=== PATIENT | male | born 1970 | race Caucasian/White ===

== ENCOUNTER → 2024-03-17 07:41 | Outpatient (REF) | payer BC, SELFPAY | LOC: RCS 07:41 | PROVIDERS: ATTENDING PHYSICIAN Registered Nurse | DX: E78.5 Hyperlipidemia, unspecified (principal); Z82.49 Family history of ischemic heart disease and other diseases of the circulatory system | CPT/HCPCS: 93017 ==

== ENCOUNTER 2024-04-07 12:55 | Inpatient (IN) | payer BC, OTHER, SELFPAY ==
[2024-04-07] VITALS (15 sets, daily range): BP systolic 102–153; BP diastolic 68–119; BMI 30.9; BMI 30.6
--- NOTE | 2024-04-07 10:59 | ED.GENMED ---
History of Present Illness
General
Chief Complaint: Cardiac Symptoms
Time Seen by Provider: 04/07/24 10:59
History of Present Illness
History of Present Illness:
HPI: Woke last evening at 10 PM w/ palpitations along with some degree of vague shortness of breath chest discomfort. He also had some mild dizziness. Had trouble going back to sleep. No fevers, no recent illness. No changes in thyroid med.
Recent exercise stress test which was abnormal but is scheduled to see Dr. Sharma next month.
EXAM:
GENERAL: Well appearing in no distress
HEENT: Moist oral mucosa
CARDIOVASCULAR: No murmurs, tachycardic heart rate, irregular rhythm, No chest wall tenderness
PULMONARY: No respiratory distress, breath sounds are clear and equal
ABDOMEN: Soft with no peritoneal signs, no tenderness
NEUROLOGIC: Excellent strength all extremities, no coordination deficits
PSYCHIATRIC: Appropriate mental status, normal insight and judgement
EXTREMITIES: Nontender, no edema, moves all extremities equally
SKIN: No rash, no lesions
TIME OF INITIAL ENCOUNTER: 11:30 AM
NUMBER AND COMPLEXITY OF PROBLEMS ADDRESSED AT THE ENCOUNTER
� Chronic conditions affecting care: Asthma, hypothyroidism, hyperlipidemia
� Acute Exacerbation and/or Progression of Chronic Illness: This is an acute problem
� Differential Diagnosis includes: New onset A-fib, thyroid disease, ACS
AMOUNT AND/OR COMPLEXITY OF DATA TO BE REVIEWED AND ANALYZED
� I performed an independent evaluation of and my interpretation is:
EKG: A-fib 119, left axis deviation, nonspecific ST abnormality with no old to compare
CT:
X-rays:
Laboratory Studies: Troponin 0.012, CBC unremarkable, TSH normal, chemistries for the most part are unremarkable with exception of total bili and I have asked the nurse to redraw the potassium
Other:
� Review of other/old records: I reviewed records�the patient had a exercise stress test read by Dr. Dietz 3 weeks ago that was positive for ischemia with [address] depression in the inferolateral leads at 95%
� Clinical information was obtained by an independent historian: I spoke to at bedside
� Prescriptions/Medications Considered but not given:
� Further testing considered but not performed:
RISK OF COMPLICATIONS AND/OR MORBIDITY OR MORTALITY OF PATIENT MANAGEMENT
� Social determinants of health affecting care: Does not usually drink alcohol regularly but did have alcohol on the preceding 2 days prior to symptom onset
� Discussion with other providers: Discussed case with Dr. Cristobal; Dr. Carey for admission
� Escalation of care including admission/observation vs risk of discharge considered: In discussion with Dr. Cristobal, it was ultimately felt to be safest to keep him here on Cardizem drip and consider CARLYLE cardioversion tomorrow.
He was placed on a Cardizem drip as his rates frequently in the 110s to 130s range.
Phy Exam
Physical Exam
Physical Exam:
See HPI
Course
Orders/Labs/Results
Orders:
Orders
04/07/24 09:53
Electrocardiogram (*1) Urgent
Reason for Study: Chest Pain
EKG- Treatment ONCE
04/07/24 Lunch
Gluten Free
At Your Request: Full Participation
04/07/24 11:17
Complete Blood Count/With Diff Urgent
Comprehensive Metabolic Panel Urgent
Direct Bilirubin Urgent
Comment: ADD ON
Magnesium Urgent
TSH Reflex To Free T4 Urgent
Troponin I Urgent
04/07/24 12:04
Diltiazem HCl [Cardizem] 10 mg IV NOW STA
04/07/24 12:15
Diltiazem 125 mg/125 ml Nss [Cardizem] 125 mg in 125 ml IV PER PROTOCOL
Initial dose in mg/hr, then titrate:: 5
Titrate to keep:: Heart rate 80-100 bpm
Titrate by mg/hr:: 5 mg/hr
Frequency of titrations (minutes):: 15
Maximum dose in mg/hr:: 15
04/07/24 12:39
Add On- LAB Urgent
Tests Added?: direct bili
04/07/24 12:40
Heparin 4,000 units IV NOW STA
Notify MD As Directed
Notify physician if: Call provider for further orders if PTT is greater than or equal to 200 per heparin
infusion protocol.
Nursing to Place Non Medication Order As Directed
Physician Order: PTT 6 hours after initial start of Heparin infusion
Above order entered?: Yes
04/07/24 12:41
CARDIOLOGY CONSULT Routine
Consulting Provider: Gutierrez Carvajal
Was physician already notified: Yes
Reason for consult: new onset afib
04/07/24 12:43
Admit/Transfer Patient As Directed
Co-Sign Provider:
Level of Care: Inpatient admission
Assign to:: IVU
Physician / Group: kang rincon
Diagnosis: new onset afib
Reason for Hospitalization: new onset afib
Expected length of stay greater than two midnights?: Yes
ELOS- Estimated Length of Stay in days: 3
I certify the patient meets the requirements for IP care: Yes
Code Status As Directed
Resuscitation Status: Full Code
04/07/24 12:45
Heparin 98148 Units/250 ml 25,000 units in 250 ml IV PER PROTOCOL
Weight to be used for heparin protocol in kilograms (kg):: 103.2
Protocol:: Cardiac Tx/Acute Coronary
PTT Goal Range to be used:: PTT 73 to 111 seconds
Order type:: Initial
INITIAL Infusion Dose (UNITS/KG/hr) & then follow protocol:: 12 units/kg/hr
Infusion Dose in UNITS/hr & then follow protocol (UNITS/hr):: 1,000
INFUSION RATE in mL/hr & then follow protocol (mL/hr):: 10
PTT less than or equal to 64 seconds:: Increase rate by 200 units/hr (+ 2 mL/hr)
PTT 64.1 to 72.9 seconds:: Increase rate by 100 units/hr (+ 1 mL/hr)
PTT 73 to 111 seconds:: Target Range. No change in rate.
PTT 111.1 to 130.9 seconds:: Decrease rate by 100 units/hr (- 1 mL/hr)
PTT 131 to 199.9 seconds:: HOLD for 1 hr. Then decrease rate by 200 units/hr (- 2 mL/hr)
PTT greater than or equal to 200 seconds:: HOLD for 2 hrs & Notify Provider. Then decrease by 200 units/hr (-
2 mL/hr)
Lab follow-up:: Each change, PTT q6h until 2 consecutive are therapeutic. Then PTT
daily.
04/07/24 12:46
PRN Pain Medication Management As Directed
May give lesser potent ordered pain med per pt: Yes
preference::
Protocol:: Medication orders for pain may be administered in a
manner that supports deferring to patient preference
when the pt is:
- Requesting an ordered lesser potent pain medication.
Least to most potent pain medications are defined
as: acetaminophen < NSAID < tramadol < opioids
(morphine, oxycodone, hydromorphone).
- Requesting a lesser dose of the same medication IF
ORDERED.
- Requesting a less intrusive route of administration
if both routes are prescribed by the provider (PO <
IV).
04/07/24 13:01
PTT Urgent
Comment: Obtain baseline before beginning heparin infusion if not already collected
Abnormal Lab Results
04/07/24
11:17
MCH 32.2 H pg
(27.0-31.0)
MPV 10.8 H fL
(7.4-10.4)
Calcium 10.3 H mg/dl
(8.4-10.2)
Total Bilirubin 3.5 H mg/dl
(0.2-1.3)
Alkaline Phosphatase 36 L U/L
(38-126)
04/07/24 11:17
04/07/24 11:17
Vital Signs
Initial and Last Documented VS:
Initial Vital Signs
Temp Pulse BP Pulse Ox
98.3 F 54 127/84 99
04/07/24 10:01 04/07/24 10:01 04/07/24 10:01 04/07/24 10:01
Last Documented Vital Signs
Temp Pulse Resp BP Pulse Ox
98.3 F 82 13 123/87 94
04/07/24 10:01 04/07/24 12:30 04/07/24 12:30 04/07/24 12:00 04/07/24 12:30
*Critical Care Note
Total Time (30-74mins, 75-104mins- exclusive of procedures): Not Applicable
ED Attending Note
-
Portions of this chart may have been created with voice recognition software.� Occasional wrong word or��sound alike� substitutions may have occurred due to the inherent limitations of voice recognition software.
Discharge Plan
Departure
Patient Disposition: Admit
Date of Disposition: 04/07/24
Time of Disposition: 12:06
Presentation/result/management discussed w/ accepting MD/DO: Hospitalist
Discharge Problem:
Atrial fibrillation with RVR
Interventions
Interventions:
*Risk Screen - Suicide Last Done: 04/07/24 11:17
*General Assessment Last Done: 04/07/24 11:17
*Neglect/Abuse Screening Last Done: 04/07/24 11:17
ED- Fall Risk Assessment Last Done: 04/07/24 11:17
*ED COVID-19 Vaccine History Last Done: 04/07/24 11:17
ED- Pulmonary Assessment Last Done: 04/07/24 11:17
ED- Cardiac Assessment Last Done: 04/07/24 11:17
[2024-04-07 11:47] LABS: % Basophils 0.4 % (0-2); % Eosinophils 0.3 % (0-6); % Immature Granulocytes 0.1 % (0-0.5); % Lymphocytes 22.1 % (20.5-51.1); % Monocytes 8.6 % (1.7-9.3); % Neutrophils 68.5 % (42.2-75.2); Absolute Lymphocytes 1.7 10^3/uL (1.2-3.4); Absolute Monocytes 0.6 10^3/uL (0.1-0.6); Absolute Neutrophils 5.1 10^3/uL (1.4-6.5); Hematocrit 46.7 % (39.0-52.0); Hemoglobin 16.4 g/dL (13.0-18.0); Mean Corp Hgb Conc. 35.1 g/dL (33.0-37.0); Mean Corpuscular Hgb 32.2 pg (27.0-31.0); Mean Corpuscular Volume 91.6 fL (80.0-94.0); Mean Platelet Volume 10.8 fL (7.4-10.4); Nucleated Red Blood Cells % 0 % (-); Platelet Count 390 10^3/uL (130-400); Red Cell Dist. Width 14.1 % (11.5-14.5); White Blood Cell Count 7.5 10^3/uL (4.8-10.8)
[2024-04-07 12:04] LABS: Troponin I 0.012 ng/ml
--- NOTE | 2024-04-07 12:13 | HPS.HSE ---
Family Physician
-
Family Physician: JOYCE Yun
Chief Complaint
-
Palpitations, shortness of breath, chest discomfort, dizziness
History of Present Illness
53-year-old male complaining of palpitations with shortness of breath and slight chest discomfort starting last night 04/06/2024 at 10 PM. He does report some mild dizziness with those symptoms. He had outpatient stress test on 03/17/[address] depression inferior lateral leads at 95% positive for ischemia and had plans to follow-up with Dr. Eaton next month. He comes to the ER today Heart rate 119 bpm. He denies any recent illness, sick contacts headache, fever, chills, chest
pain, shortness breath, cough, abdominal pain, nausea, vomiting, diarrhea, urinary symptoms. He reports he drinks once a month he did have a couple beers on Sunday.
He has past medical history hypothyroidism, HLD, seasonal allergies asthma, ulcerative colitis, celiac disease.
Medical History
Past Medical History
Past Medical History: Reports Other
Additional Past Medical History:
hypothyroidism
HLD
seasonal allergies
asthma
ulcerative colitis
celiac disease
Past Surgical History: Reports Other
Additional Past Surgical History:
Right knee meniscus repair
Social History
Tobacco: Non-smoker
Alcohol: Occasional (Once a month)
Drug: None
Personal:
Living: With Family (With )
Employment: Employed ([employer])
Family History
Family History: Other (Mom CAD stent 72 Father CAD, CABG x 4 vessel disease at age 60)
Allergies / Home Medications
Allergies reflects when Allergies were last updated in [employer].
Home Medications with original date entered in [employer]
Allergy/Medication List:
Allergies
Allergy/AdvReac Type Severity Reaction Status Date / Time
No Known Allergies Allergy Unverified 04/07/24 10:03
Home Medications
aspirin 81 mg tablet,delayed release 81 mg PO DAILY 04/07/24
atorvastatin 40 mg tablet 40 mg PO DAILY 04/07/24
cetirizine 10 mg tablet (Zyrtec) 10 mg PO DAILY 04/07/24
cholecalciferol (vitamin D3) 50 mcg (2,000 unit) tablet 50 mcg PO DAILY 04/07/24
levothyroxine 125 mcg tablet (Synthroid) 125 mcg PO DAILY 04/07/24
montelukast 10 mg tablet 10 mg PO DAILY 04/07/24
omega 0-xaf-zjy-fish oil 1,000 mg (120 mg-180 mg) capsule (Fish Oil) 1 cap PO DAILY 04/07/24
therapeutic multivitamin 1 tab PO DAILY 04/07/24
upadacitinib 30 mg tablet,extended release 24 hr (Rinvoq) 30 mg PO DAILY 04/07/24
Review of Systems
-
History Source: Patient and Family ( at bedside)
A 12 point ROS was completed and negative except as noted: Yes
Constitutional: Denies Fever, Fatigue or Chills
EENT: Denies Sore Throat or Runny Nose
Respiratory: Reports Trouble Breathing; Denies Cough
Cardiac: Reports Chest Pain and Palpitations; Denies Syncope
Abdomen/GI: Denies Abdominal Pain, Nausea, Vomiting, Diarrhea, Constipated, Bloody Stools or Black Stools
: Denies Dysuria, Frequency, Flank Pain, Incontinence, Difficulty Voiding or Urgency
Musculoskeletal: Denies Joint Pain, Joint Swelling or Edema
Skin: Denies Itching or Rash
Neurological: Reports Dizzy; Denies Headache or Weakness
Endocrine: Reports No Symptoms
Hematologic/Lymphatic: Reports No Symptoms
Psych: Reports Calm
Physical Exam
Vital Signs
Vital Signs
Temp Pulse Resp BP Pulse Ox
98.3 F 116 15 108/86 95
04/07/24 10:01 04/07/24 11:45 04/07/24 11:45 04/07/24 11:00 04/07/24 11:45
Physical Exam
General: Comfortable and Conversant; No Pain, Fever or Chills
HEENT: NormoCephalic, Anicteric, Moist mucous membranes, PERRLA, [place] Conjunctivae, No Ptosis and Neck Nontender
Respiratory: Clear; No Wheezes, Rales or Rhonchi
Cardiac: S1/S2 and Irregular Rhythm (A-fib HR 119 bpm); No Murmur, Rub, Gallop or Peripheral Edema
Breast: Deferred by me
GI: Non Tender, Non Distended, Normal Bowel Sounds and No Hepatosplenomegaly
Rectal: Brown and Deferred by Provider
Genito-urinary: Deferred by me
Musculoskeletal: No Clubbing, No Cyanosis and No Edema
Skin: Warm and Dry; No Rash
Neuro: AO x 3, No Motor Deficits, Nonfocal/grossly intact, Cranial Nerves Intact and No Sensory Deficits; No Slurred Speech, Facial Droop or Tremors
Psych: Calm
Laboratory Results
-
04/07/24 11:17
Laboratory Results
Troponin I 0.012 ng/ml 04/07/24 11:17
Data Reviewed
-
Lab Data: Labs Reviewed by me
Impression/Plan
-
Impression/plan:
Admit to IVU
#New onset A-fib with RVR
-IV Cardizem drip
-IV heparin drip
-Plan for CARLYLE/cardioversion in a.m. 04/08/2024
N.p.o. after midnight
-May have gluten-free diet today
-Consult [facility]ology
-Check TSH with free T4 reflex
03/17/2024: Outpatient stress test showed positive for ischemia with [address] depression inferior lateral at 95%
#Hypothyroidism
Check TSH with free T4 reflex
-Continue Synthroid 125 mcg p.o. daily
#Elevated total bilirubin unclear
T. bili 3.5
Will check direct bili
#HLD
Continue atorvastatin 40 mg daily
-May continue prophylactic aspirin 81 mg daily
#Asthma�no acute exacerbation
#Ulcerative colitis Hx
-Continue Rinvoq 30 mg daily
#Celiac disease
-Gluten-free diet
#Seasonal allergies
Continue Zyrtec 10 mg daily, montelukast 10 mg daily
DVT prophylaxis
Iv heparin gtt
Full code
[2024-04-07] MEDS: CARDIZEM 10 MG IV (12:19)
[2024-04-07] MEDS: CARDIZEM 125 IV (12:19)
[2024-04-07 12:24] LABS: TSH Reflex To Free T4 0.68 uIU/ml (0.47-4.68)
[2024-04-07 12:30] LABS: ALT (SGPT) 44 U/L (0-50); AST (SGOT) 57 U/L (17-59); Albumin 4.7 g/dl (3.5-5.0); Alkaline Phosphatase 36 U/L (38-126); Blood Urea Nitrogen 11 mg/dl (9-20); Calcium 10.3 mg/dl (8.4-10.2); Carbon Dioxide 26 mmol/L (22-30); Chloride 106 mmol/L (98-107); Estimated Creatinine Clearance 121 ml/min; Glucose 98 mg/dl (70-99); Sodium 141 mmol/L (135-145); Total Bilirubin 3.5 mg/dl (0.2-1.3); Total Protein 7.2 g/dl (6.3-8.2); eGFR > 60.00
[2024-04-07] MEDS: HEPARIN 4000 UNITS IV (13:25)
--- NOTE | 2024-04-07 13:29 | CON.CAR ---
Consultation
Consultation Request
Date/Time Consultation Requested: 04/07/24
Date/Time Consultation Performed: 04/07/24
Requesting Provider: Jourdan Pritchard
Performing Provider: Wei
Reason for Consultation: AFRVR
Medical History
-
Chief Complaint: palpitations
History of Present Illness:
53-year-old man past medical history of ulcerative colitis presenting with palpitations found to be in atrial fibrillation with rapid ventricular response, cardiology is consulted for evaluation and management of A-fib
Patient tells me developed palpitations last evening that brought him to [place] emergency department. Here he was found to be in atrial fibrillation with heart rates up into the 130s. He was started on diltiazem drip with improvement in heart
rate control. patient tells me that atrial fibrillation is a new diagnosis for him however he has had intermittent palpitations over the last several months.
Not experiencing chest pain or pressure. No shortness of breath at rest or dyspnea exertion. No lower extremity edema.
Transthoracic echocardiogram from 2019 with normal biventricular size and function and no significant valvular pathology.
In regards to cardiac history, he has a strong family history of coronary artery disease and therefore underwent ETT this past month ordered by his PCP which showed abnormal ECG response. No chest discomfort on the treadmill or otherwise. He is
planned to follow-up with Dr. Sharma in the next month regarding this.
PMHx:
Abnormal stress test
HLD
FHx premature CAD
Hypothyroidism
Seasonal allergies
Asthma
Ulcerative colitis
Celiac disease
Past Medical History
Past Medical History: Other (as above)
Past Surgical History: Other (as above)
Social History
Tobacco: Non-Smoker
Alcohol: Occasional
Personal:
Employment: Employed
Family History
Family History: CAD (both parents)
Allergies / Home Medications
Allergy/AdvReac Type Severity Reaction Status Date / Time
No Known Allergies Allergy Unverified 04/07/24 10:03
�Medication �Instructions �Recorded �Confirmed �Type
aspirin 81 mg tablet,delayed 81 mg PO DAILY 04/07/24 04/07/24 History
release
atorvastatin 40 mg tablet 40 mg PO DAILY 04/07/24 04/07/24 History
cetirizine 10 mg tablet (Zyrtec) 10 mg PO DAILY 04/07/24 04/07/24 History
cholecalciferol (vitamin D3) 50 50 mcg PO DAILY 04/07/24 04/07/24 History
mcg (2,000 unit) tablet
levothyroxine 125 mcg tablet 125 mcg PO DAILY 04/07/24 04/07/24 History
(Synthroid)
montelukast 10 mg tablet 10 mg PO DAILY 04/07/24 04/07/24 History
omega 8-yjy-shr-fish oil 1,000 mg 1 cap PO DAILY 04/07/24 04/07/24 History
(120 mg-180 mg) capsule (Fish Oil)
therapeutic multivitamin 1 tab PO DAILY 04/07/24 04/07/24 History
upadacitinib 30 mg tablet,extended 30 mg PO DAILY 04/07/24 04/07/24 History
release 24 hr (Rinvoq)
Review of Systems
-
History Source: Patient
All other systems: Negative unless noted
Physical Exam
Vital Signs
Temp Pulse Resp BP Pulse Ox
98.3 F 82 13 123/87 94
04/07/24 10:01 04/07/24 12:30 04/07/24 12:30 04/07/24 12:00 04/07/24 12:30
Lab Results
04/07/24 11:17
04/07/24 11:17
Troponin I 0.012 ng/ml 04/07/24 11:17
Physical Exam
General: Well Developed
HEENT: Normocephalic
Respiratory: Clear and Non Labored Respirations
Cardiac: S1/S2 and Irregular Rhythm
GI: Soft
Musculoskeletal: No Edema
Skin: Warm and Dry
Neuro: AO x 3
Psych: Calm
Impression / Plan
-
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
Assessment:
AFib RVR
Abnormal stress test
HLD
FHx premature CAD
Hypothyroidism
Seasonal allergies
Asthma
Ulcerative colitis
Celiac disease
TTE 12/2019: Normal biventricular size and function, no significant valvular pathology
ETT 03/2024: [address] depressions at 11 METS, DTS +5, low to moderate risk study
Plan:
-Presenting with palpitations found to be in atrial fibrillation with rapid ventricular response
-Diltiazem drip for rate control, goal heart rate less than 110 bpm
-If he remains in atrial fibrillation tomorrow we will plan for CARLYLE/direct-current cardioversion
-Consider discharging on p.o. diltiazem for rate control
-Heparin drip for cardioembolic prophylaxis with plan to transition to Eliquis on discharge, explained that he should continue Eliquis for 1 month following the cardioversion. Can discuss long-term anticoagulation as an outpatient however with low
CHADS2 Vasc may be able to come off of OAC.
-Patient would be interested in discussing ablation with electrophysiology
-Discussed his mildly abnormal exercise stress test, he is not experiencing any chest discomfort and troponin was undetectable
-Consideration of further ischemic evaluation as an outpatient - we can tentatively schedule stress echo prior to office follow up if he is interested
Data Reviewed
-
EKG: Tracing Personally Visualized and interpreted
Medical Tests (Nuc Med, Echo etc): Image Personally Visualized and interpreted
Labs: Labs Reviewed by me
Old Records: Reviewed
[2024-04-07] MEDS: HEPARIN 25000 UNITS/250 ML IV (13:31)
[2024-04-07 13:49] LABS: Direct Bilirubin 0.2 mg/dl (0.0-0.4)
--- NOTE | 2024-04-07 14:03 | W.PN.UPDATE ---
Update Note
Progress Note Update
Patient seen and examined and discussed with COOPER Cannon, and I agree with her note.
Gen-AAOx3, NAD
HEENT-NC, AT, anicteric, clear oral mm
Neck-supple
CV-reg, no M, +S1/S2
Lungs-clear B/L
Abd-soft, NT, ND
Ext-no edema
Musculoskeletal-no cyanosis, clubbing
Skin-warm and dry
Neuro-grossly non-focal
Psych-calm, cooperative
New onset atrial fibrillation -rapid ventricular response. Admit to IVU, IV Cardizem, IV heparin. N.p.o. after midnight for possible CARLYLE/cardioversion morning. Cardiology consulted.
Abnormal stress test -mild ischemia noted. Cardiology recommends outpatient ischemic evaluation.
Hypothyroidism -continue Synthroid. TSH 0.68.
Hyperlipidemia -atorvastatin.
Elevated indirect bilirubin -suspect Gilbert's syndrome.
Ulcerative colitis -controlled on Rinvoq.
Mild intermittent asthma - stable.
Celiac disease
Seasonal allergies
Obesity due to excess calories
Full code
--- NOTE | 2024-04-07 17:13 | PTCARENOTE ---
Pt admitted from ED with newly documented atrial fib. Pt denies any discomfort. Cardizem and heparin infusions in progress. Telemetry shows atrial fib at a rate @68 at rest up to 130's with activity. Pt given information about atrial fib and videos
to watch on TV. Plan for CARLYLE/CV on 04/08 if needed.
[2024-04-07 20:36] LABS: APTT 45.9 Sec (23.4-35.0)
[2024-04-07] MEDS: CARDIZEM CD 180 MG PO (21:19)
[2024-04-07] MEDS: ELIQUIS 5 MG PO (21:20)
--- NOTE | 2024-04-07 23:00 | PTCARENOTE ---
Assumed care of pt. at change of shift. VSS, Afib on tele. HR sustaining in 60s and as low as 45. Denies CP, SOB, or dizziness. Cardiology provider Dr Carvajal notified. IV Cardizem gtt discontinued and switched to PO Cardizem. Heparin drip
discontinued and PO eliquis started. Pt. NPO at midnight for CARLYLE/cardioversion tomorrow. Plan of care discussed and pt. verbalizes understanding. Ambulating independently in room without difficulty. Can make needs known. Call espinoza within reach.
[2024-04-08 03:21] VITALS: BP 120/78
[2024-04-08 04:19] LABS: % Basophils 0.5 % (0-2); % Eosinophils 0.8 % (0-6); % Immature Granulocytes 0.2 % (0-0.5); % Lymphocytes 45.2 % (20.5-51.1); % Neutrophils 43.3 % (42.2-75.2); Absolute Eosinophils 0.1 10^3/uL (0-0.7); Absolute Lymphocytes 2.9 10^3/uL (1.2-3.4); Absolute Monocytes 0.6 10^3/uL (0.1-0.6); Absolute Neutrophils 2.8 10^3/uL (1.4-6.5); Hemoglobin 15.8 g/dL (13.0-18.0); Mean Corp Hgb Conc. 35.1 g/dL (33.0-37.0); Mean Corpuscular Hgb 31.9 pg (27.0-31.0); Mean Corpuscular Volume 90.7 fL (80.0-94.0); Mean Platelet Volume 11.2 fL (7.4-10.4); Nucleated Red Blood Cells % 0 % (-); Platelet Count 370 10^3/uL (130-400); Red Blood Cell Count 4.96 10^6/uL (4.70-6.10); Red Cell Dist. Width 14.1 % (11.5-14.5); White Blood Cell Count 6.4 10^3/uL (4.8-10.8)
--- NOTE | 2024-04-08 04:19 | PTCARENOTE ---
Pt. with frequent >2 second pauses on telemetry with longest being 2.69 seconds. HR 40s-70s at rest, in Afib. Pt. denies dizziness or SOB. BP 120/78.
[2024-04-08 04:42] LABS: ALT (SGPT) 38 U/L (0-50); AST (SGOT) 42 U/L (17-59); Alkaline Phosphatase 39 U/L (38-126); Blood Urea Nitrogen 13 mg/dl (9-20); Calcium 9.6 mg/dl (8.4-10.2); Carbon Dioxide 24 mmol/L (22-30); Chloride 107 mmol/L (98-107); Estimated Creatinine Clearance > 125 ml/min; Glucose 103 mg/dl (70-99); HDL Cholesterol 65 mg/dl; LDL Cholesterol, Calculated 81 mg/dl; Potassium 4.2 mmol/L (3.5-5.1); Sodium 139 mmol/L (135-145); Total Bilirubin 2.5 mg/dl (0.2-1.3); Total Cholesterol 162 mg/dl (50-199); Total Protein 6.4 g/dl (6.3-8.2); Triglyceride 81 mg/dl (10-149); Very Low Density Lipoprotein 16 mg/dl (0-30); eGFR > 60.00
[2024-04-08] MEDS: SYNTHROID 125 MCG PO (06:42)
[2024-04-08 07:00] VITALS: BP 128/79
[2024-04-08] MEDS: CARDIZEM CD 180 MG PO (08:01)
[2024-04-08] MEDS: ELIQUIS 5 MG PO (08:02)
[2024-04-08 10:06] VITALS: BP 122/83
--- NOTE | 2024-04-08 10:40 | PTCARENOTE ---
Received pt post CARLYLE/CV. VSS. in pt's room reviewing results. Will monitor.
[2024-04-08] MEDS: ZYRTEC 10 MG PO (10:56)
[2024-04-08] MEDS: LIPITOR 40 MG PO (10:56)
[2024-04-08] MEDS: THERAGRAN 1 TABLET PO (10:56)
[2024-04-08] MEDS: VITAMIN D3 (cholecalciferol) 50 MCG PO (10:56)
[2024-04-08] MEDS: NON-FORMULARY ITEM 30 MG PO (10:56)
[2024-04-08] MEDS: SINGULAIR 10 MG PO (10:56)
--- NOTE | 2024-04-08 12:04 | W.PN.CARDCBS ---
Addendum entered and electronically signed by Severo Pittman MD 04/08/24 17:31:
I saw and examined the patient.
The Rail Manager's note was reviewed and I agree with the note.
Comment:
GEN: No distress, awake, Ox3
HEENT: supple, anicteric, mmm
LUNGS: CTA, no wheezes/rales
CV: Reg, S1/S2, /6 syst LSB, no gallop
ABD: soft, BS+, NT/ND
EXT: No edema
NEURO: Gross non-focal
SKIN: No rash
plan:
Back in rhythm status post CARLYLE cardioversion. Continue Eliquis and p.o. Cardizem. Stop aspirin.
Will proceed with stress echo as outpatient
Follow-up with electrophysiology in several weeks. Okay for discharge.
Original Note:
Today's Communication / Plan
-
Status post successful CARLYLE/cardioversion
Stop aspirin. Continue Harmony Camposzem
Planned for stress echo 04/11/2024
Outpatient EP follow-up 04/29/2024
Okay for discharge
Impression / Plan
-
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
Assessment:
AFib RVR s/p CARLYLE/CV 04/08/24
Abnormal stress test
HLD
FHx premature CAD
Hypothyroidism
Seasonal allergies
Asthma
Ulcerative colitis
Celiac disease
TTE 12/2019: Normal biventricular size and function, no significant valvular pathology
ETT 03/2024: [address] depressions at 11 METS, DTS +5, low to moderate risk study
Plan:
-He presented with palpitations and was found to be in new A-fib with RVR
-TSH within normal limits
-Status post successful CARLYLE/cardioversion 04/08
-Stop aspirin. Continue Eliquis started this admission
-Continue p.o. Cardizem 180 mg daily
-He was noted to have mildly abnormal treadmill stress test. Without chest discomfort and troponin undetectable, however with significant family history. He is scheduled through [facility] for stress echo, scheduled for 04/11/2024
-Outpatient cardiac follow-up with EP arranged
-Okay for discharge to home today
-Discussed activity restrictions/limitations
-Discussed with patient and at bedside. Discussed with nursing. Discussed with hospitalist.
Progress Note - French Comber
Subjective
Date of Service: April 08, 2024
No complaints. Status post successful CARLYLE/cardioversion
Objective
Labs:
04/08/24 03:30
04/08/24 03:30
Labs
Hgb 15.8 g/dL (13.0-18.0) 04/08/24 03:30
Hct 45.0 % (39.0-52.0) 04/08/24 03:30
Plt Count 370 10^3/uL (130-400) 04/08/24 03:30
APTT Cancelled 04/08/24 02:50
Sodium 139 mmol/L (135-145) 04/08/24 03:30
Potassium 4.2 mmol/L (3.5-5.1) 04/08/24 03:30
BUN 13 mg/dl (9-20) 04/08/24 03:30
Creatinine 0.8 mg/dL (0.7-1.3) 04/08/24 03:30
Glucose 103 mg/dl (70-99) H 04/08/24 03:30
Troponins
04/07/24
11:17
Troponin I 0.012
Vital Signs and I&O:
Vital Signs
Temp Pulse Resp BP Pulse Ox
97.7 F 47 18 122/83 97
04/08/24 10:13 04/08/24 10:06 04/08/24 10:13 04/08/24 10:04/08/24 10:06
Vital Signs
Temp Pulse Resp BP Pulse Ox
97.7 F 47 18 122/83 97
04/08/24 10:13 04/08/24 10:04/08/24 10:13 04/08/24 10:04/08/24 10:06
Physical Exam
Physical Exam
GEN: No distress, awake, alert, orientedx3. Sitting in chair
HEENT: supple, anicteric, mmm
LUNGS: CTA bilaterally, no wheezes/rales
CV: Reg, S1/S2, no murmur
ABD: soft, BS+, NT/ND
EXT: No cyanosis, clubbing, edema
NEURO: Gross non-focal
SKIN: Warm, pink, dry. No rash
--- NOTE | 2024-04-08 12:13 | W.PN.HOSP.TC ---
Today's Communication/Plan
-
Discharge
Assessment / Plan
Assessment / Plan
Gen-AAOx3, NAD
HEENT-NC, AT, anicteric, clear oral mm
Neck-supple
CV-reg, no M, +S1/S2
Lungs-clear B/L
Abd-soft, NT, ND
Ext-no edema
Musculoskeletal-no cyanosis, clubbing
Skin-warm and dry
Neuro-grossly non-focal
Psych-calm, cooperative
New onset atrial fibrillation -underwent successful CARLYLE/cardioversion today to sinus rhythm. Symptomatically he feels back to his normal self. Continue Jovanni Campos on discharge. Follow-up as outpatient with PCP and cardiology.
Abnormal stress test -mild ischemia noted. Cardiology plans on outpatient stress test on 04/11.
Hypothyroidism -continue Synthroid. TSH 0.68.
Hyperlipidemia -atorvastatin.
Elevated indirect bilirubin -suspect Gilbert's syndrome.
Ulcerative colitis -controlled on Rinvoq.
Mild intermittent asthma - stable.
Celiac disease
Seasonal allergies
Obesity due to excess calories
Full code
Dispo -medically stable for discharge. Updated at the bedside.
32 minutes spent in discharge process.
Anticipated Discharge: Today
Subjective/Interval History
-
Date of Service: April 08, 2024
Patient seen and examined. Feels great, no complaints.
Objective Data
-
Labs:
Laboratory Results
04/08/24 04/08/24
02:50 03:30
WBC 6.4
Hgb 15.8
Hct 45.0
Plt Count 370
APTT Cancelled
Sodium 139
Potassium 4.2
Chloride 107
Carbon Dioxide 24
BUN 13
Creatinine 0.8
Glucose 103 H
Calcium 9.6
Total Bilirubin 2.5 H
AST 42
ALT 38
Alkaline Phosphatase 39
Vital Signs:
Vital Signs
Temp Pulse Resp BP Pulse Ox
97.7 F 47 18 122/83 97
04/08/24 10:13 04/08/24 10:06 04/08/24 10:13 04/08/24 10:06 04/08/24 10:06
Review of Systems
-
History Source: Patient
All other systems: Reviewed and negative
--- NOTE | 2024-04-08 12:16 | W.DS.TRANS ---
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
-
Discharge Instructions:
Sleep Apnea Risk Intermediate
Discharge Diagnosis/Procedures Atrial fibrillation
Diet Low Cholesterol,Low Fat
Activity As tolerated
Driving Restrictions No driving for 24 hours
Bathing Restrictions None
Instructions:
Stand-Alone Forms:
Changes to Home Medications: Yes
Discharge Medications:
DC Medications w/original date entered in [facility] [facility]
atorvastatin 40 mg tablet 40 mg PO DAILY High Cholesterol 04/07/24
cetirizine 10 mg tablet (Zyrtec) 10 mg PO DAILY Allergies 04/07/24
cholecalciferol (vitamin D3) 50 mcg (2,000 unit) tablet 50 mcg PO DAILY Supplement 04/07/24
levothyroxine 125 mcg tablet (Synthroid) 125 mcg PO DAILY@06 Thyroid 04/07/24
montelukast 10 mg tablet 10 mg PO DAILY Lung/Breathing Issues 04/07/24
omega 3-wmj-gsg-fish oil 1,000 mg (120 mg-180 mg) capsule (Fish Oil) 1 cap PO DAILY Supplement 04/07/24
therapeutic multivitamin 1 tab PO DAILY Supplement 04/07/24
upadacitinib 30 mg tablet,extended release 24 hr (Rinvoq) 30 mg PO DAILY Autoimmune Disorder 04/07/24
apixaban 5 mg tablet (Eliquis) 5 mg PO BID #60 tabs 04/08/24
diltiazem HCl 180 mg capsule,extended release 24 hr 180 mg PO DAILY #30 caps 04/08/24
Home Medication Changes
Stop aspirin
Pending Results: No
--- NOTE | 2024-04-08 12:24 | CM ---
Reviewed chart. Met with and Mrs. Purvis to review discharge plans. He states prior to admission he resides with his spouse and two children in a two story with three steps to enter. He has a full flight of steps to get to bedroom. He states he
has a full bathroom on each level.He states prior to admission he was independent with ambulation and adls. He states he does not have any DME in the home. He states he has a prescription plan and uses [facility]. Telephone call to [facility] to
check on co-pay for Eliquis 5 mg po bid. His co-pay would be $50.00 a month. He has commercial insurance so he can use the $10.00 coupon. He has the one month free and $10.00 co-pay coupon. Medically work-up in progress. The discharge plan is to
return home with his spouse when medically stable.
== END 2024-04-08 14:35 | disposition home or self-care (01) | DRG 309 ==
LOC: IVU 12:55
PROVIDERS: Clinical Nurse Specialist Family Health; Internal Medicine; ADMITTING PHYSICIAN Hospitalist; CONSULT PHYSICIAN Internal Medicine Cardiovascular Disease; EMERGENCY PHYSICIAN Emergency Medicine; FAMILY PHYSICIAN Registered Nurse
PROC: B24BZZ4 Ultrasonography of Heart with Aorta, Transesophageal (ICD-10-PCS; 2024-04-08)
PROC: 5A2204Z Restoration of Cardiac Rhythm, Single (ICD-10-PCS; 2024-04-08)
DX: I48.91 Unspecified atrial fibrillation (principal); K51.90 Ulcerative colitis, unspecified, without complications; E03.9 Hypothyroidism, unspecified; E78.5 Hyperlipidemia, unspecified; K90.0 Celiac disease; E66.09 Other obesity due to excess calories; Z68.30 Body mass index [BMI] 30.0-30.9, adult
CPT/HCPCS: 80053; 80061; 82248; 83735; 84132; 84443; 84484; 85025; 85730; 93005; 93312; 93320; 93325; 96374; 96376; 99285

== ENCOUNTER → 2024-04-11 13:16 | Outpatient (REF) | payer BC, OTHER, SELFPAY | LOC: RCS 13:16 | PROVIDERS: ATTENDING PHYSICIAN Registered Nurse; REFERRING PHYSICIAN Internal Medicine Cardiovascular Disease | DX: R94.39 Abnormal result of other cardiovascular function study (principal) | CPT/HCPCS: 93017; 93350 ==

== ENCOUNTER 2024-07-25 08:29 | Day surgery (SDC) | payer BC, OTHER, SELFPAY ==
[2024-07-07 06:52] VITALS: BMI 33.7
[2024-07-07 07:20] LABS: % Basophils 0.5 % (0-2); % Eosinophils 0.3 % (0-6); % Immature Granulocytes 0.5 % (0-0.5); % Lymphocytes 21.6 % (20.5-51.1); % Neutrophils 68.1 % (42.2-75.2); Absolute Lymphocytes 1.3 10^3/uL (1.2-3.4); Absolute Monocytes 0.6 10^3/uL (0.1-0.6); Absolute Neutrophils 4.2 10^3/uL (1.4-6.5); Hemoglobin 15.2 g/dL (13.0-18.0); Mean Corp Hgb Conc. 34.5 g/dL (33.0-37.0); Mean Corpuscular Volume 92.6 fL (80.0-94.0); Mean Platelet Volume 10.6 fL (7.4-10.4); Nucleated Red Blood Cells % 0 % (-); Platelet Count 352 10^3/uL (130-400); Red Blood Cell Count 4.75 10^6/uL (4.70-6.10); Red Cell Dist. Width 14.9 % (11.5-14.5); White Blood Cell Count 6.2 10^3/uL (4.8-10.8)
[2024-07-07 07:48] LABS: INR 0.98; PT 13.3 Sec (11.4-14.6)
[2024-07-07 07:56] LABS: ALT (SGPT) 56 U/L (0-50); AST (SGOT) 47 U/L (17-59); Albumin 4.7 g/dl (3.5-5.0); Alkaline Phosphatase 28 U/L (38-126); Blood Urea Nitrogen 14 mg/dl (9-20); Calcium 9.8 mg/dl (8.4-10.2); Carbon Dioxide 27 mmol/L (22-30); Chloride 105 mmol/L (98-107); Estimated Creatinine Clearance 119 ml/min; Glucose 106 mg/dl (70-99); Potassium 4.2 mmol/L (3.5-5.1); Sodium 141 mmol/L (135-145); Total Bilirubin 1.9 mg/dl (0.2-1.3); Total Protein 7.3 g/dl (6.3-8.2); eGFR > 60.00
--- NOTE | 2024-07-07 08:07 | HPS.HSE ---
Family Physician
-
Family Physician: JOYCE Yun
Chief Complaint
-
Paroxysmal atrial fibrillation.
History of Present Illness
The patient is a 54 year old male presenting today for paroxysmal atrial fibrillation. The patient reports a history of mild dyspnea, palpitations, and increased anxiety associated with this diagnosis. He previously underwent a CARLYLE-guided
cardioversion in April 2024 due to his arrhythmia. He is on current pharmacological therapy with Diltiazem. He has been compliant with Eliquis for oral anticoagulation. He notes that his atrial fibrillation symptoms greatly interfere with his
activities of daily living and overall impact his quality of life. He is interested in pursuing pulmonary vein isolation for further arrhythmia management. He denies any current complaints today such as chest pain, shortness of breath at rest,
nausea, vomiting, diarrhea, lightheadedness, dizziness, cough, sore throat, or fever.
Medical History
Past Medical History
Past Medical History: Reports Other
Additional Past Medical History:
1. Paroxysmal atrial fibrillation, status post CARLYLE-guided cardioversion 04/2024; pharmacological therapy with Diltiazem, oral anticoagulation with Eliquis.
2. Dyslipidemia.
3. Abnormal stress test 03/2024; stress echocardiogram 04/2024 stable.
4. Asthma, mild and intermittent.
5. Ulcerative colitis, on Rinvoq.
6. Celiac disease.
7. C6-C7 herniated disc.
8. Hypothyroidism.
9. Mildly elevated transaminase.
10. Obesity, BMI 33.6.
11. Remote history of tobacco abuse.
Past Surgical History: Reports Other
Additional Past Surgical History:
1. CARLYLE-guided cardioversion.
2. Right knee meniscus repair.
3. Vasectomy.
4. Multiple colonoscopies.
5. Endoscopy.
Social History
Tobacco: Former Smoker (Former less than 1 pack per day cigarette smoker who quit tobacco altogether 27 years ago. )
Alcohol: Occasional (2-3 drinks per month. )
Living: Other (He lives with his and 2 children in a 3 story home. )
Family History
Family History: Not pertinent
Allergies / Home Medications
Allergy/Medication List:
Home medications:
1. Apixaban 5 mg p.o. twice a day.
2. Atorvastatin 40 mg p.o. daily.
3. Cetirizine 10 mg p.o. daily.
4. Cholecalciferol 50 mcg p.o. daily.
5. Diltiazem 180 mg p.o. daily.
6. Levothyroxine 125 mcg p.o. daily.
7. Montelukast 10 mg p.o. daily.
8. Fish oil 1 capsule p.o. daily.
9. Rinvoq 30 mg p.o. daily.
10. Multivitamin 1 tablet p.o. daily.
Allergies: Seasonal. No known drug allergies.
Review of Systems
-
A 12 point ROS was completed and negative except as noted: Yes
Physical Exam
Vital Signs
Blood pressure: 138/89. Heart rate 70. Respirations 18. Pulse ox 98% on room air.
Height 5 feet, 10.5 inches. Weight 107.9 kg. BMI 33.6.
Physical Exam
General: Well Developed, Well Nourished and No Apparent Distress
HEENT: NormoCephalic, Moist mucous membranes, Atraumatic and PERRLA
Respiratory: Clear
Cardiac: Regular Rhythm
GI: Soft, Non Tender, Non Distended and Other (Obese. )
Musculoskeletal: Normal Gait & Station
Skin: Warm and Dry
Neuro: AO x 3 and Nonfocal/grossly intact
Laboratory Results
-
07/07/24 07:02
07/07/24 07:02
Laboratory Results
PT 13.3 Sec (11.4-14.6) 07/07/24 07:02
INR 0.98 07/07/24 07:02
Total Bilirubin 1.9 mg/dl (0.2-1.3) H 07/07/24 07:02
AST 47 U/L (17-59) 07/07/24 07:02
ALT 56 U/L (0-50) H 07/07/24 07:02
Alkaline Phosphatase 28 U/L (38-126) L 07/07/24 07:02
Type and screen O negative.
EKG 07/07/2024: Normal sinus rhythm. Minimal voltage criteria for LVH, may be normal variant.
Chest CT 07/07/2024: Short segment common vestibule for the left superior and inferior pulmonary veins, fairly commonly seen and considered normal variant. No evidence for left atrial thrombus.
Stress echocardiogram 04/11/2024: Normal treadmill stress echocardiogram at 11.5 mets. Low risk stress test.
Impression/Plan
-
IMPRESSION/PLAN:
1. Paroxysmal atrial fibrillation: The patient is in need of pulmonary vein isolation with Dr. Gil Santos on 07/25/2024. The benefits and risks of the procedure have been explained to the patient. The patient understands these risks and wishes to
proceed. He will not be required to undergo a pre-procedural transesophageal echocardiogram as he has been compliant with his home oral anticoagulation. He is aware to continue his Eliquis uninterrupted prior to his procedure. He is aware to take no
medications the morning of his procedure.
[2024-07-25] VITALS (11 sets, daily range): BP systolic 105–138; BP diastolic 53–88
--- NOTE | 2024-07-25 10:58 | ITS.CL.ABL ---
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
Ablation
Procedure Report:
Primary Care: Moncho Pena MD
Procedure Date: 07/25/2024
Patient History:
Patient is a pleasant 54-year-old male with a past medical history significant for dyslipidemia, strong family history of CAD, hypothyroidism, IBD, asthma, symptomatic paroxysmal atrial fibrillation.
See H&P for complete details.
Indication:
Symptomatic paroxysmal atrial fibrillation
Arrhythmia Specific History:
Prior Medical Therapies for Rate and Rhythm Control:
[ ] Beta-omaira
X Calcium channel-omaira
[ ] Amiodarone
[ ] Dronederone
[ ] Sotalol
[ ] Flecainide
[ ] Dofetilide
[ ] Options limited by bradycardia
[ ] Options limited by comorbid renal disease
Prior Procedural Therapies for AF/AFL:
X Cardioversion
[ ] Pulmonary Vein Isolation
[ ] Posterior Wall Isolation
[ ] Additional lines (Specify)
[ ] Surgical Norman-MAZE or PVI (Specify)
Procedure Performed:
X AF ablation procedure (11579) -- includes LA/CS pacing, trans-septal, 3D mapping, + ICE
[ ] +IV drug (03425)
[ ] +Other Arrhythmia (07171)
[ ] +Other AF Line/ablation (15864)
Risks and expected recovery has been explained in detail. Alternative options have been explored, and in a shared-decision making fashion we have decided that this was the most appropriate procedure.
Method
NPO status confirmed. Grounding pad applied. Defibrillator pads applied. Continuous surface ECG, pulse oximetry, and blood pressure were monitored. Procedure was performed under general anesthesia, with anesthesia services.
Both groins were clipped, prepped with Chloraprep, and draped in sterile fashion. Time out was called. Local anesthesia administered with bupivacaine. The right femoral vein was accessed for catheter placement, using ultrasound guidance,
micro-puncture needle/wire, and modified seldinger technique. 3 sheaths were placed. The following catheters were used:
[ ] Tacticath SE (D/F Curve) ablation catheter
X Viewflex 9Fr ICE catheter
X Inquiry decapolar 6Fr diagnostic catheter
[ ] CRD Hex 6Fr
[ ] Arctic Front Advance Cryoballoon ([ ]28mm[ ]23mm)
[ ] Achieve Advance mapping catheter ([ ]15mm[ ]20mm)
X FlexCath Contour 10 Fr with PulseSelect PFA Catheter
X Advisor HD Grid Mapping Catheter, SE
[ ] Acuson AcuNav 8 Fr ICE catheter
[ ]Other: [ ]
Intracardiac ultrasound (ICE) was carefully advanced into the right atrium to guide sheath placement over a J-wire, catheter placement, guide trans-septal puncture, identify potential complications, identify anatomic structures and ensure proper
contact between ablation catheter and tissue.
Heparin was given prior to trans-septal puncture. Heparin was given to achieve and maintain a target ACT of 300-400 seconds throughout the procedure.
Trans-septal access was performed under ICE guidance. The trans-septal puncture was performed with a SafeSept wire through a Brockenbrough needle assembly through the steerable sheath. The wire was visualized as it entered the LSPV and system
advanced under ICE guidance and fluoroscopy into the LA. The Brockenbrough needle assembly, SafeSept wire and sheath dilator were removed under negative pressure. LA pressure was measured and recorded.
ICE and 3D mapping was performed to identify relevant cardiac structures. A careful 3D map was created to assess for regions of low-voltage and abnormal electrogram signals using HD grid mapping catheter and PulseSelect catheter. Additional mapping
was performed as outlined below.
Prior to ablation, glycopyrrolate was provided. PulseSelect catheter was advanced over J-wire to the ostium of each vein. Pulmonary vein isolation was performed with ostial and antral lesions in a circumferential manner. Contact was visualized via
EAM, ICE, fluoroscopy, and EGM signals. Following completion of ablation lesions, a post-ablation voltage/activation map was performed in sinus rhythm. Entrance and exit block were confirmed for each vein.
Catheter and sheath were removed from the left atrium and post-ablation intracardiac echo evaluation was consistent with pre-ablation with no changes and no pericardial effusion and there is no left atrial thrombus or left ventricle thrombus seen.
Electrophysiology study was performed. Hemostasis was obtained with Vascade for each sheath and with manual pressure. Protamine was used for reversal.
Estimated Blood Loss
5 mL
Complications
None
Fluoroscopy: 3.7 minutes; 12.78 mGy; DAP 1.51
Baseline Intervals:
Rhythm: SR
LA: 198 ms
QRS: 85 ms
QT: 333 ms
QTc: 324 ms
A-A: 1152 ms
R-R: 1152 ms
Post-Procedure Intervals:
LA: 170 ms
QRS: 98 ms
QT: 419 ms
QTc: 532 ms
A-A: 945 ms
R-R: 945 ms
AVWB: 350 ms
AERP: 600/200 ms
Recommendations
- Bedrest with straight-leg precautions as ordered
- Anticipate same day discharge if patient meeting clinical metrics
- Resume home medications as indicated
- Ok to resume anticoagulation tonight if patient and groin sites stable
- PPI daily for 30 days
- Plan for follow-up in office as scheduled
Gil Santos DO
Clinical Cardiac Stock Supervisor
cc: Moncho Pena MD
[2024-07-25 11:56] LABS: ACT-LR - POC 245 Seconds (116-155)
[2024-07-25 12:13] LABS: ACT-LR - POC 282 Seconds (116-155)
[2024-07-25 12:28] LABS: ACT-LR - POC 331 Seconds (116-155)
[2024-07-25 12:51] LABS: ACT-LR - POC 350 Seconds (116-155)
[2024-07-25 13:00] LABS: ACT-LR - POC 186 Seconds (116-155)
[2024-07-25] MEDS: ANESTHETIC LOZENGE 1 LOZENGE PO (14:03)
--- NOTE | 2024-07-25 16:18 | W.PN.UPDATE ---
Update Note
Progress Note Update
54 yo WM s//p PVI (Same day). He denies cp, sob, segun diet, voiding, amb w/o dizziness, R fem site c/d/i VASCADE, soft, EKG SR. He will resume Eliquis tonight at 7pm. Activity restrictions reviewed. 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 He is for d/c home
after 4pm.
== END 2024-07-25 16:05 | disposition home or self-care (01) ==
LOC: CATH 08:29
PROVIDERS: ATTENDING PHYSICIAN Internal Medicine Cardiovascular Disease; FAMILY PHYSICIAN Registered Nurse
DX: I48.0 Paroxysmal atrial fibrillation (principal); E03.9 Hypothyroidism, unspecified; E66.9 Obesity, unspecified; E78.5 Hyperlipidemia, unspecified; J45.909 Unspecified asthma, uncomplicated; M50.223 Other cervical disc displacement at C6-C7 level; Z68.33 Body mass index [BMI] 33.0-33.9, adult; Z87.891 Personal history of nicotine dependence; R74.01 Elevation of levels of liver transaminase levels; K51.90 Ulcerative colitis, unspecified, without complications; K90.0 Celiac disease; R94.39 Abnormal result of other cardiovascular function study; Z79.899 Other long term (current) drug therapy; Z79.890 Hormone replacement therapy; Z79.01 Long term (current) use of anticoagulants
CPT/HCPCS: C1894; C1730; C1769; C1759; C1733; 36415; 75572; 80053; 83735; 85025; 85347; 85610; 86850; 86900; 86901; 93005; 93656; C1732; C1760; C1766; Q9967